=== PATIENT | female | born 1985 ===

== ENCOUNTER 2018-12-25 13:37 | Day surgery (SDC) | payer OTHER ==
[~2018-12-25] VITALS: Ht 170.2 cm; Wt 93.6 kg
[2018-12-25 14:08] VITALS: BP 117/77; PULSE 86; TEMP 97.8
[2018-12-25 15:40] VITALS: BP 116/77; PULSE 92; TEMP 98.4
--- NOTE | 2018-12-25 15:41 | NUR ---
PATIENT RETURNED TO BAY [facility] FROM OR VIA CART. Respirations even and unlabored. Lungs clear bilaterally. CRANBERRY JUICE AND PUDDING GIVEN PER REQUEST. VS STARTED. AT BEDSIDE. CALL LIGHT IN REACH.
[2018-12-25 15:54] VITALS: BP 110/70; PULSE 97
--- NOTE | 2018-12-25 15:55 | NUR ---
VS CONTINUE. AT BEDSIDE. CALL LIGHT IN REACH. TOLERATED JUICE AND PUDDING.
[2018-12-25 16:10] VITALS: BP 110/70; PULSE 97
--- NOTE | 2018-12-25 16:22 | NUR ---
IV DC'D. VS STABLE. TOLERATED FOOD AND DRINK. DISCHARGE INSTRUCTIONS GIVEN TO PATIENT AND SPOUSE. VERBALIZED UNDERSTANDING. PATIENT LEFT AMBULATORY WITH RN AT HER SIDE DOWN TO PERSONAL VEHICHLE.
[2018-12-25 18:49] VITALS: BP 107/74; PULSE 97
== END 2018-12-25 16:30 | disposition home or self-care (01) ==
LOC: SDCO 13:37
DX: K21.0 Gastro-esophageal reflux disease with esophagitis (principal); Z88.5 Allergy status to narcotic agent; Z90.710 Acquired absence of both cervix and uterus; Z87.891 Personal history of nicotine dependence; E66.9 Obesity, unspecified; Z68.31 Body mass index [BMI] 31.0-31.9, adult
CPT/HCPCS: J2250; J3010; J7030